=== PATIENT | female | born 1965 | race Caucasian/White ===

== ENCOUNTER 2017-01-19 09:10 | Emergency (ER) | payer OTHER ==
[~2017-01-19] VITALS: Ht 172.7 cm; Wt 89.4 kg
== END 2017-01-19 10:21 | disposition short-term general hospital (02) ==
LOC: ER 09:18
DX: I21.3 ST elevation (STEMI) myocardial infarction of unspecified site (principal); I49.9 Cardiac arrhythmia, unspecified; I10 Essential (primary) hypertension; M19.90 Unspecified osteoarthritis, unspecified site; Z79.899 Other long term (current) drug therapy
CPT/HCPCS: J0171; J0282; J0330; J1265; J1644; J2250